=== PATIENT | female | born 1975 | race Caucasian/White ===

== ENCOUNTER → 2016-03-24 | Outpatient (CLI) | payer MEDICAID ==
--- NOTE | 2016-03-24 18:01 | US ---
Dear Dr. Ge, Thank you for sending your patient, Kathryn Falk, to us for a follow-up US for a TTTS and TAPS check. As you know, the patient is a 40 y.o. G6, P5005 at 27 weeks and 1 days with an EDC of 06/22/16 based on LMP and 8 week US. This is a monochorionic-monoamniotic twin . Her is complicated by AMA >40, grand multiparity, and history of a LEEP. Genetic Screening: NIPT reassuring The patient denies any uterine contractions, vaginal bleeding, or loss of fluid. She reports excellen t movement. Today, she is without complaints. US FINDINGS: Number of fetuses: 2 Placental location: Anterior, no previa Cervix: 3.5 cm, transabdominally Twin A: - Position: Maternal right - Presentation: Breech - FHR: 143 - MVP: 3.9 cm - Stomach: Present - Bladder: Present - MCA Doppler PSV: 51.8 cm/s. This is equivalent to 1.45 MoMs, and is below the designated cutoff of 1.5 MoMs. Twin B: - Position: Maternal left - Presentation: Transverse, head maternal left - FHR: 147 - MVP: 5.4 cm - Stomach: Present - Bladder: Present - MCA Doppler PSV: 50.2 cm/s. This is equivalent to 1.41 MoMs, and is below the designated cutoff of 1.5 MoMs. IMPRESSION: Monochorionic-Diamniotic Twin : Today, there is no evidence of TTTS or TAPS. - Growth US and TTTS/TAPS check in 2 weeks - Start twice weekly NSTs at 32 weeks - Delivery by 37+0 weeks Thank you again for sending this patient to see us today. Approximately 15 minutes were spent with th is patient today with 12 minutes of this time spent in direct face to face counseling regarding today 's US findings and our recommendations. Please contact me with any questions at . Edwige Hussein MD Maternal- Medicine
--- NOTE | 2016-03-25 08:44 | US ---
OB Sonogram , limited with duplex Doppler analysis History: ROSA June 22, 2016, 27 weeks 1 day, mono chorionic diamniotic twins, advanced maternal age, twin twin transfusion syndrome, Comparison: March 10, 2016 Findings: The cervix is closed measuring 3.5 scanned transabdominally. There is no placenta previa. T he placenta is anterior and not mature. A thin membrane is present between the 2 twins. Twin A: This is the presenting twin and is on the maternal right in breech presentation. heart is 4 chambered. Heart rate = 143 beats per minute. Maximum amniotic fluid pocket = 3.9 cm. Fluid is i dentified in the stomach and urinary bladder. The renal region looks normal. There is no ascites. There is no pleural or pericardial effusion Duplex Doppler analysis: Middle cerebral artery peak systolic velocity = 51.8 cm/sec and is low. Twin B: The fetus is on the maternal left and in transverse lie with the head on the maternal l eft. The heart is 4 chambered. Heart rate = 147 beats per minute. Maximum amniotic fluid pocket = 5.4 cm.. Fluid is identified in the stomach and urinary bladder. The renal regio n looks normal. There is no ascites. There is no pleural or pericardial effusion. Duplex Doppler analysis: Middle cerebral artery peak systolic velocity = 50.2 cm/sec and is low. Impression: There is no evidence for twin twin transfusion syndrome or TAPS. This report should be read in conjunction with the consultation by Dr. Edwige Hussein.
== END ==
LOC: FIMAGING 09:43
PROVIDERS: ATTEND Obstetrics & Gynecology
DX: O30.013 Twin pregnancy, monochorionic/monoamniotic, third trimester (principal); O09.523 Supervision of elderly multigravida, third trimester; O09.43 Supervision of pregnancy with grand multiparity, third trimester; Z3A.27 27 weeks gestation of pregnancy

== ENCOUNTER → 2016-04-07 | Outpatient (CLI) | payer MEDICAID ==
--- NOTE | 2016-04-07 18:43 | US ---
Dear Dr. Ge, Thank you for sending your patient, Kathryn Falk, to us for a follow-up US to assess interval grow th and for a TTTS and TAPS assessment. As you know, the patient is a 40 y.o. G6, P5005 at 29 weeks an d 1 days with an EDC of 06/22/16 based on LMP and 8 week US. This is a monochorionic-diamniotic twin p regnancy complicated by AMA>40 and grand multiparity. Genetic Screening: NIPT reassuring The patient denies any uterine contractions, vaginal bleeding, or loss of fluid. She reports excellen t movement. Today, she is without complaints. US FINDINGS: Number of fetuses: 2 Placental location: Anterior, no previa Cervix: 3.7 cm, transabdominally Twin A presentation: Cephalic, maternal right MVP: 7.5 cm Measurements: Biparietal diameter: 73 mm, 29 weeks 3 days Head circumference: 276 mm, 30 weeks 2 days Abdominal circumference: 262 mm, 30 weeks 3 days Femur length: 58 mm, 30 weeks 2 days Humerus length: 51 mm, 30 weeks 0 days Transcerebellar diameter: 34 mm, 28 weeks 6 days Cerebral Lateral Ventricle: Suboptimal Cisterna Magna: 5 mm Heart Rate: 150 bpm Average ultrasound age: 30 weeks 1 days Estimated weight: 1530 g weight percentile: 76 % Anatomy: anatomy was previously assessed. Today the following structures were visualized and appeared n ormal: posterior fossa, 4CH view, stomach, kidneys, and bladder. MCA Doppler: PSV: 44.4 cm/s, 1.13 MoM, Normal Twin B presentation: Cephalic, maternal left MVP: 6.8 cm Measurements: Biparietal diameter: 73 mm, 29 weeks 3 days Head circumference: 271 mm, 29 weeks 4 days Abdominal circumference: 252 mm, 29 weeks 3 days Femur length: 56 mm, 29 weeks 4 days Humerus length: 50 mm, 29 weeks 2 days Transcerebellar diameter: 36 mm, 30 weeks 1 days Cerebral Lateral Ventricle: Suboptimal Cisterna Magna: 7.6 mm Heart Rate: 140 bpm Average ultrasound age: 29 weeks 4 days Estimated weight: 1395 g weight percentile: 48 % Anatomy: anatomy was previously assessed. Today the following structures were visualized and appeared n ormal: posterior fossa, 4CH view, stomach, and bladder. MCA Doppler: PSV: 46.2 cm/s, 1.18 MoM, Normal Twin Size Difference: 9% difference with Twin A larger than Twin B, concordant growth IMPRESSION: Today, both twins measure at an appropriate weight and percentile for gestational age. Their growth c ontinues to be concordant. There is no evidence of TTTS with normal amniotic fluid around both twins and both twins with normal bladders and stomachs. There is no evidence of TAPS as both twins have nor mal MCA PSV. - TTTS and TAPS check in 2 weeks - Growth US in 4 weeks - Start twice weekly NSTs at 32 weeks - Delivery by 37+0 weeks or sooner for changes in maternal or status Thank you again for sending this patient to see us today. Approximately 15 minutes were spent with th is patient today with 12 minutes of this time spent in direct face to face counseling regarding today 's US findings and our recommendations. Please contact me with any questions at . Edwige Hussein MD Maternal- Medicine
--- NOTE | 2016-04-08 18:45 | US ---
Ultrasound OB Follow-Up Indication: Monochorionic diamniotic twins. Follow-up. The estimated gestational age by LMP is 29 w eeks and 1 days yielding an EDC of June 22, 2016. Comparison: March 24, 2016 Findings: Gestation: Monochorionic diamniotic twins. Cervix: Closed measuring 3.7 cm. No previa. Anterior placenta. Twin A: Presentation: Cephalic, maternal right Maximal vertical pocket: 7.5 cm heart rate: 150 bpm. Biometry: Biparietal diameter: 73.06 mm 29 weeks, 3 days Head circumference: 276.18 mm 30 weeks, 2 days Abdominal circumference: 261.86 mm 30 weeks, 3 days Femur length: 57.79 mm 30 weeks, 2 days Humerus length: 51.11 mm 30 weeks, 0 days HC/AC: 1.05 (0.99 - 1.21) FL/BPD: 79% FL/AC: 22% Average ultrasound age: 30 weeks, 1 days EDC based on today's average ultrasound age: June 15, 2016 Estimated weight is 1530 gms +/- 223 gms. The estimated weight is at the 76 percentile ba sed on previous dating. Anatomy previously evaluated. Today's limited anatomy includes 4 chamber heart, stomach, kidney s and bladder. Twin B: Presentation: Cephalic, maternal left Maximal vertical pocket: 6.8 cm heart rate: 140 bpm. Biometry: Biparietal diameter: 73.03 mm 29 weeks, 3 days Head circumference: 270.92 mm 29 weeks, 4 days Abdominal circumference: 52.21 mm 29 weeks, 3 days Femur length: 56.07 mm 29 weeks, 4 days Humerus length: 49.97 mm 29 weeks, 2 days Transcerebellar diameter: 36.44 mm 30 weeks, 1 days HC/AC: 1.07 (0.99 - 1.21) FL/BPD: 77% FL/AC: 22% Average ultrasound age: 29 weeks, 4 days EDC based on today's average ultrasound age: June 19, 2016 Estimated weight is 1395 gms +/- 204 gms. The estimated weight is at the 48 percentile ba sed on previous dating. The difference in estimated weight is 9%. Concordant growth. Anatomy previously evaluated. Today's limited anatomy demonstrates four-chamber view of heart, stomach and bladder. Impression: 1. Living monochorionic diamniotic twins. 2. Concordant growth of twins. 3. Size concordant with dates. 4. Please see Dr. Edwige Hussein's consult and recommendations.
== END ==
LOC: FIMAGING 09:09
PROVIDERS: ATTEND Obstetrics & Gynecology
DX: O30.033 Twin pregnancy, monochorionic/diamniotic, third trimester (principal); O09.523 Supervision of elderly multigravida, third trimester; Z3A.29 29 weeks gestation of pregnancy

== ENCOUNTER → 2016-04-20 | Outpatient (CLI) | payer MEDICAID ==
--- NOTE | 2016-04-20 13:44 | US ---
April 20, [address] Prabhu Murillo, Thank you for allowing us the opportunity to see your patient Kathryn Falk for TTTS check. As you know, Kathryn is a 40 year-old, 6, para 5005 with a monochorionic diamniotic twin dating 31 weeks 0 days. Her ROSA is 06/22/16 by LMP and 8 week ultrasound. Today, she is being seen for her s erial surveillance of Twin to Twin Transfusion Syndrome. ULTRASOUND Number of fetuses: 2 Placenta: Anterior; monochorionic Amnion: Diamniotic Cervical Length: Suboptimally viewed Twin A Position: Maternal right; cephalic Heart Rate: 144 bpm Maximum Vertical Pocket: 6.0 cm Stomach: Present Bladder: Present Middle Cerebral Artery Doppler Peak Systolic Velocity: 54 cm/s. This is at 1.27 MoM for this gestat ional age. The average PSV for this gestational age is 42 cm/s. Twin B Position: Maternal left; cephalic Heart Rate: 155 bpm Maximum Vertical Pocket: 5.6 cm Stomach: Present Bladder: Present Middle Cerebral Artery Doppler Peak Systolic Velocity: 53 cm/s. This is at 1.24 MoM for this gestat ional age. The average PSV for this gestational age is 42 cm/s. IMPRESSION: 1. Monochorionic Diamniotic twin at 31 weeks 0 days; ROSA of 06/22/16. 2. No evidence of Twin to Twin Transfusion Syndrome (TTTS) 3. No evidence of Twin Anemia Polycythemia Syndrome (TAPS) 4. Normal amniotic fluid volume for both babies. RECOMMENDATIONS I had the opportunity to review today's ultrasound with your patient. I reassured her that today's u ltrasound did not reveal any worrisome findings concerning for TTTS or TAPS. Serial surveillance is recommended and she has been scheduled to return in 2 week(s) for growth and Dopplers. Thank you for allowing me the opportunity to evaluate your patient. Should you have any questions or concerns, please do not hesitate to contact me on my cell phone at [phone]. Sincerely, Analy Kam MD [employer] [facility] Maternal Medicine Department of Obstetrics and Gynecology [facility]
--- NOTE | 2016-04-20 18:51 | US ---
Ultrasound OB Follow-Up Indication: Monochorionic diamniotic twins. The estimated gestational age by LMP is 31 weeks and 0 days yielding an EDC of 06/22/2016. Comparison: April 07, 2016 Findings: Gestation: Monochorionic diamniotic twins. Cervix: Suboptimal. Twin A: Presentation: Cephalic, maternal right Placental location: Anterior, monochorionic. Maximal vertical pocket: 6 cm heart rate: 144 bpm. Anatomy previously evaluated. Twin B: Presentation: Cephalic, maternal left Maximal vertical pocket: 5.6 cm heart rate: 155 bpm. Anatomy previously evaluated. Impression: 1. Living monochorionic diamniotic twins. 2. Normal amniotic fluid volume. 3. Please see Dr. Analy Kam's consult and recommendations.
== END ==
LOC: FIMAGING 12:26
PROVIDERS: ATTEND Obstetrics & Gynecology
DX: O30.033 Twin pregnancy, monochorionic/diamniotic, third trimester (principal); O09.523 Supervision of elderly multigravida, third trimester; Z3A.31 31 weeks gestation of pregnancy

== ENCOUNTER → 2016-05-11 | Outpatient (CLI) | payer MEDICAID | LOC: FIMAGING 13:25 | PROVIDERS: ATTEND Obstetrics & Gynecology | DX: O09.523 Supervision of elderly multigravida, third trimester (principal); O30.033 Twin pregnancy, monochorionic/diamniotic, third trimester; Z3A.34 34 weeks gestation of pregnancy ==

== ENCOUNTER 2016-06-01 05:40 | Inpatient (IN) | payer MEDICAID ==
[2016-06-01] MEDS ORDERED: LR 500 ML IV ONE (06:09)
[2016-06-01] MEDS ORDERED: CITRIC ACID/SODIUM CITRATE 30 ML UDCUP PO ONE (06:09)
[2016-06-01] MEDS ORDERED: CLINDAMYCIN 900 MG/DEXTROSE 50 ML IV ONE (06:09)
[2016-06-01] MEDS ORDERED: LR 1,000 ML IV SCH (06:30)
[2016-06-01 06:37] LABS: % IMMATURE GRANULYOCYTES 1.1 % (0.0-1.1); ABSOLUTE IMMATURE GRANULOCYTES 0.13 10^3/uL (0.00-0.10); ADD DIFF? NO; ADD MORPH? NO; ADD SCAN? NO; ATYPICAL LYMPHOCYTE FLAG 10 (0-99); FRAGMENT RBC FLAG 0 (0-99); HEMOGLOBIN 12.9 g/dL (12.6-16.3); LEFT SHIFT FLG 10 (0-99); LIPEMIA HEMOLYSIS FLAG 90 (0-99); MEAN CELL HEMOGLOBIN 31.2 pg (27.9-34.1); MEAN CELL HEMOGLOBIN CONCENTR. 33.9 g/dL (32.4-36.7); MEAN PLATELET VOLUME 10.1 fL (8.7-11.7); PLATELET CLUMPS FLAG 20 (0-99); PLATELET COUNT 284 10^3/uL (150-400); RED BLOOD CELL COUNT 4.13 10^6/uL (4.18-5.33); RED CELL DISTRIBUTION WIDTH 12.6 % (11.5-15.2)
[2016-06-01] MEDS ORDERED: GENTAMICIN SULFATE 350 MG in D5W 100 ML IV ONE (07:00)
[2016-06-01] MEDS ORDERED: fentaNYL 100 MCG/2 ML INJ ONE (07:29)
[2016-06-01] MEDS ORDERED: morphINE PF 5 MG/10 ML INJ ONE (07:29)
[2016-06-01] MEDS ORDERED: OXYTOCIN 100 UNITS/10 ML VIAL ONE (07:30)
[2016-06-01] MEDS ORDERED: PHENYLEPHRINE HCL 100 MCG/ML SYR ONE (07:30)
[2016-06-01] MEDS ORDERED: LIDOCAINE 1% 30 ML SDV ONE (07:31)
[2016-06-01] MEDS ORDERED: MISOPROSTOL 200 MCG TAB ONE (07:35)
[2016-06-01] MEDS ORDERED: METHYLERGONOVINE MAL 0.2 MG/ML INJ ONE (07:36)
[2016-06-01] MEDS ORDERED: HEMABATE 250 MCG/1 ML AMP IM ONE (07:36)
[2016-06-01] MEDS ORDERED: SIMETHICONE 80 MG TAB CHEW PO PRN (07:39)
[2016-06-01] MEDS ORDERED: ONDANSETRON 4 MG/2 ML VIAL ONE (07:58)
--- NOTE | 2016-06-01 08:43 | OBPROC ---
- Delivery Pre-op Diagnoses: Twins Post-op Diagnoses: Twins Procedure: Primary Surgeon: Sis Ge Territory Sales Manager: Ayse Sanchez Anesthesiologist: Osvaldo Simmons Hand Molder [employer] Caster/PRODUCTION TECHNICIAN: Tracy Marks Anesthesia: Spinal Complications: None Specimen(s)/Path: Fallopian Tube(s) IV Fluid (ml): 2,900 EBL: 900 - [place] Info Infant A Delivery Date: 06/01/16 Delivery Time: 08:10 Sex of Infant: Female Score (1 Min): 9 Score (5 Min): 9 B Delivery Date: 06/01/16 Delivery Time: 08:12 Sex of Infant: Female
[2016-06-01] MEDS ORDERED: SCOPOLAMINE HYDROBROMIDE 1.5 MG PATCH TD ONE (09:00)
--- NOTE | 2016-06-01 09:25 | GOP ---
[f rep st] OPERATIVE REPORT DATE OF OPERATION: 06/01/2016 SURGEON: Sis Murillo MD PREOPERATIVE DIAGNOSIS: Intrauterine at 37 weeks' gestation with dichorionic/monoamniotic twin gestation and fetus B in breech presentation, desired sterility. POSTOPERATIVE DIAGNOSIS: 1. Intrauterine at 37 weeks' gestation with dichorion/monoamnion twin gestation and fetus B in breech presentation. 2. Desired sterility. PROCEDURE PERFORMED: Primary low transverse and bilateral tubal ligation. FINDINGS: Normal uterus, fallopian tubes, and ovaries. Infant A was in vertex presentation, clear amniotic fluid, Apgars 9 and 9, weight 6 pounds, 6 ounces. Twin B was in footling breech presentation, Apgars 7 and 8, weight 2696 g, EBL was 900 mL. SPECIMENS: Bilateral tubal segments and placenta. INDICATIONS: The patient is a 40-year-old, female who conceived spontaneously with dichorionic/diamniotic twins, and fetus B was in breech presentation. Agreed to delivery. She also desired permanent sterilization. DESCRIPTION OF PROCEDURE: The patient was taken to the operating room where she was prepped and draped in normal sterile fashion in the dorsal supine position with leftward tilt. A surgical time-out was performed verifying the patient's name, date of , planned procedure, and site. The patient received clindamycin and gentamicin preoperatively for her IV antibiotic prophylaxis as she is allergic to penicillin. A Pfannenstiel skin incision was made with a scalpel and carried through to the underlying fascia. The fascia was incised in the midline and extended laterally with the Miranda scissors. The superior aspect of fascia was grasped with Jose Carlos clamps. The rectus muscles dissected off bluntly and with the Bovie cautery. The inferior aspect of the fascia was grasped with Jose Carlos clamps. The rectus muscles dissected off bluntly and with the Bovie cautery. The peritoneum was identified and entered bluntly. The peritoneum was divided. The vesicouterine peritoneum was incised with the Metzenbaum scissors, and a bladder flap was created digitally. The bladder blade was replaced. The uterus was incised with a scalpel, and the uterine incision extended laterally. A was vertex presentation, and the cord was clamped and cut. Infant B amniotic sac was broken. The was in footling-breech presentation and was delivered. The cord was clamped and cut, and the was handed to the nurse practitioner. Cord blood was obtained. The placentas were delivered manually. The uterus was exteriorized and cleared of all clots and debris. The uterine incision was reapproximated with 0 Monocryl in a running, locked fashion in 2 layers. The right fallopian tube was grasped with a [place] clamp. The mesosalpinx was incised. The tube was ligated and transected. The same procedure was performed on the patient's left. The uterus was returned to the abdomen. The gutters were cleared of all clots and debris. The uterine incision was reinspected and noted to be hemostatic. The subfascial space was reinspected and noted to be hemostatic. The fascia was reapproximated with 0 Vicryl in a running fashion. The subcutaneous tissue was irrigated and closed with 3-0 Vicryl, and the skin was closed with 4-0 Monocryl. All counts were correct x2. COMPLICATIONS: None. OUTCOME: Stable to recovery room. /[id number]/MODL MTDD
[2016-06-01] MEDS ORDERED: NALOXONE HCL 0.4 MG/ML INJ IVP PRN (10:44)
[2016-06-01] MEDS ORDERED: ONDANSETRON 4 MG/2 ML VIAL IVP PRN (10:44)
[2016-06-01] MEDS ORDERED: PHENYLEPHRINE HCL 100 MCG/ML SYR IVP PRN (10:44)
--- NOTE | 2016-06-01 10:49 | PREANESOB ---
Obstetric Pre-Anesthesia Info - General Info Proposed Procedure: C Section for twins. : 6 Para: 5 WBD: 37 - Info Status: Full Term Monitors: External FHR Baseline (bpm): 135 FHR Pattern: Reassuring - Labor Status Section History: Primary Labor Epidural: No Anesthesia ROS: Labor epidural x 5. Possible PDPH? Allergies/Adverse Reactions: Allergy/AdvReac Type Severity Reaction Status Date / Time Penicillins Allergy Verified 06/01/16 06:09 Visit Medications: Generic Name Dose Route Start Last Admin Trade Name Freq PRN Reason Stop Dose Admin Hydrocodone Bitart/Acetaminophen 1 - 2 tab 06/01/16 07:39 Ethel 5/325 PO 06/11/16 07:38 Q4HRS PRN Pain, Moderate Docusate Sodium 100 mg 06/01/16 07:39 Colace PO 11/28/16 07:38 BID PRN Constipation Lactated Ringer's 1,000 mls @ 125 mls/hr 06/01/16 06:30 06/01/16 06:35 Lr IV 11/28/16 06:29 1,000 mls CONT SAKSHI Administration Ibuprofen 600 mg 06/01/16 07:39 Motrin PO 11/28/16 07:38 Q6HRS PRN Inflammation Ketorolac Tromethamine 30 mg 06/01/16 12:00 Toradol IVP 06/02/16 06:01 Q6HRS SAKSHI Simethicone 80 mg 06/01/16 07:39 Mylicon PO 11/28/16 07:38 .TIDMEALS AND HS PRN Gas Discontinued Medications Generic Name Dose Route Start Last Admin Trade Name Freq PRN Reason Stop Dose Admin Carboprost Tromethamine Confirm 06/01/16 07:36 Hemabate Administered 06/01/16 07:37 Dose 250 mcg IM .STK-MED ONE Citric Acid/Sodium Citrate 30 ml 06/01/16 06:09 06/01/16 09:24 Bicitra PO 06/01/16 06:10 Not Given ONCALL ONE Fentanyl Confirm 06/01/16 07:29 Sublimaze Administered 06/01/16 07:30 Dose 100 mcg .ROUTE .STK-MED ONE Clindamycin Phosphate/Dextrose 50 mls @ 100 mls/hr 06/01/16 06:09 06/01/16 07 :11 Cleocin 900 Mg (Premix) IV 06/01/16 06:38 50 mls ONCALL ONE Administration Protocol Lactated Ringer's 500 mls @ 0 mls/hr 06/01/16 06:09 06/01/16 09:24 Lr IV 06/01/16 06:10 500 mls ONCE ONE Administration As Directed Gentamicin Sulfate 350 mg/ 108.75 mls @ 108.75 mls/hr 06/01/16 07:00 07:28 Dextrose IV 06/01/16 07:59 108.75 mls ONCALL ONE Administration Lidocaine HCl Confirm 06/01/16 07:31 Lidocaine Hcl 1% Administered 06/01/16 07:32 Dose 30 ml .ROUTE .STK-MED ONE Methylergonovine Maleate Confirm 06/01/16 07:36 Methergine Administered 06/01/16 07:37 Dose 0.2 mg .ROUTE .STK-MED ONE Misoprostol Confirm 06/01/16 07:35 Cytotec Administered 06/01/16 07:36 Dose 800 mcg .ROUTE .STK-MED ONE Morphine Sulfate Confirm 06/01/16 07:29 Morphine Pf 5 Mg/10 Ml Administered 06/01/16 07:30 Dose 5 mg .ROUTE .STK-MED ONE Ondansetron HCl Confirm 06/01/16 07:58 Zofran Administered 06/01/16 07:59 Dose 8 mg .ROUTE .STK-MED ONE Oxytocin Confirm 06/01/16 07:30 Pitocin Administered 06/01/16 07:31 Dose 100 units .ROUTE .STK-MED ONE Phenylephrine HCl Confirm 06/01/16 07:30 Josias-Synephrine Administered 06/01/16 07:31 Dose 1,000 mcg .ROUTE .STK-MED ONE Scopolamine HBr Confirm 06/01/16 09:00 Transderm-Scop Administered 06/01/16 09:01 Dose 1.5 mg TD .STK-MED ONE - Anesthesia History Response to Local Anesthetics: Normal Anesthesia & Operative History: Prob w/Prior Anesthesia Family Anesthesia History: Negative - Social History Substance Use/Abuse: Denies - Focused Exam Latest Vital Signs (Nursing): Temp Pulse Resp BP Pulse Ox 36.4 C 74 18 98 06/01/16 09:25 06/01/16 09:25 06/01/16 09:25 06/01/16 09:25 Blood Pressure: 121/81 Heart Rate: 84 Respiratory Rate: 18 Height/Weight (Nursing): Height 165.1 cm Weight 91.626 kg Physical Exam: Within normal limits. ASA Status: II Labs: 06/01/16 06:20 Patient ABO/Rh B POSITIVE 06/01/16 06:20 - Plan Anesthetic Plan: SAB Consent Signed and on Chart: Yes Patient/Guardian Understands and Agrees to Plan: Yes
[2016-06-01] MEDS: KETOROLAC 30 MG/1 ML SDV IVP SCH ×2 (10:51→17:13)
--- NOTE | 2016-06-01 10:52 | POSTANESTH ---
Post Anesthetic Evaluation Cardiovascular Status: Normal, Stable, Similar to Pre-Op Cond Respiratory Status: Normal, Stable, Similar to Pre-op Cond. Level of Consciousness/Mental Status: Can Participate in Eval, Alert and Oriented Pain Control: Adequate, Prn Tx Ordered Nausea/Vomiting Control: Adequate, Prn Tx Ordered Complications Possibly Related to Anesthesia: None Noted (Tolerated spinal well , BP treated, comfortable for surgery, to PACU, no pain or nausea.)
[2016-06-01] MEDS: DOCUSATE SODIUM 100 MG CAP PO PRN (20:32)
[2016-06-02] MEDS: KETOROLAC 30 MG/1 ML SDV IVP SCH ×2 (00:08→06:28)
[2016-06-02] MEDS: HYDROCODONE/APAP 5/325 TAB PO PRN ×6 (00:42→16:49)
[2016-06-02] MEDS ORDERED: POLYETHYLENE GLYCOL 3350 17 GM PKT PO PRN (07:42)
[2016-06-02] MEDS ORDERED: MAGNESIUM HYDROXIDE 30 ML UDCUP PO PRN (07:42)
[2016-06-02] MEDS ORDERED: LACTULOSE 20 GM/30 ML UDCUP PO PRN (07:42)
[2016-06-02] MEDS ORDERED: BISACODYL 10 MG SUPP PR PRN (07:42)
--- NOTE | 2016-06-02 07:45 | SOAPPROG ---
SOAP Progress Note Assessment/Plan: Assessment: 40 y.o. s/p primary C/S for breech presentation of second twin. POD #1. Recovering well. . Incision CDI. Plan: Routine / post-op orders. D/C Hall and IVF. Remove abdominal bandage. Encourage ambulation. consult PRN. 06/02/16 07:42 Subjective: Reports feeling well with good pain control and minimal vaginal bleeding. Incision CDI. Hall D/C'd and patient has been out of bed and ambulating well. Voiding without difficulty. Eating and drinking without nausea or vomiting. Appropriate mood with good support system. . Objective: Vital Signs Temp Pulse Resp BP Pulse Ox 36.6 C 80 18 98/62 L 95 06/02/16 04:00 06/02/16 06:00 06/02/16 00:10 06/02/16 04:00 06/02/16 06:00 Laboratory Results 06/01/16 06:20 06/01/16 06/02/16 06/03/16 05:59 05:59 05:59 Intake Total 7100 Output Total 5025 Balance 2075 - Time Spent With Patient Time Spent With Patient: 20 minutes - Pending Discharge Pending Discharge Within 24 Hours: No Pending Discharge Within 48 Hours: Yes Pending Discharge Date: 06/04/16 Pending Discharge Time: 11:00 Physical Exam - Physical Exam General Appearance: WD/WN, alert, no apparent distress EENT: normal ENT inspection Neck: non-tender, full range of motion, normal inspection Respiratory: lungs clear, normal breath sounds Cardiac/Chest: regular rate, rhythm Abdomen: non-tender, soft Pelvic Exam: normal external exam Rectal: deferred Back: Normal inspection Skin: normal color, warm/dry Lymphatic: no adenopathy Extremities: normal range of motion, non-tender, normal inspection Neuro/Psych: alert, normal mood/affect, oriented x 3 ICD10 Worksheet Patient Problems: Problems Problem Status Onset Breech presentation Acute
[2016-06-02] MEDS: SENNOSIDES 1 TAB PO SCH ×2 (09:01→20:47)
[2016-06-02] MEDS: DOCUSATE SODIUM 100 MG CAP PO PRN ×2 (09:01→20:47)
[2016-06-02 09:19] LABS: % IMMATURE GRANULYOCYTES 0.9 % (0.0-1.1); ABSOLUTE IMMATURE GRANULOCYTES 0.16 10^3/uL (0.00-0.10); ADD DIFF? NO; ADD MORPH? NO; ADD SCAN? NO; ATYPICAL LYMPHOCYTE FLAG 0 (0-99); FRAGMENT RBC FLAG 0 (0-99); HEMOGLOBIN 11.2 g/dL (12.6-16.3); LEFT SHIFT FLG 0 (0-99); LIPEMIA HEMOLYSIS FLAG 90 (0-99); MEAN CELL HEMOGLOBIN CONCENTR. 33.9 g/dL (32.4-36.7); MEAN CELL VOLUME 91.4 fL (81.5-99.8); MEAN PLATELET VOLUME 9.9 fL (8.7-11.7); PLATELET CLUMPS FLAG 10 (0-99); PLATELET COUNT 268 10^3/uL (150-400); RED BLOOD CELL COUNT 3.61 10^6/uL (4.18-5.33); RED CELL DISTRIBUTION WIDTH 12.8 % (11.5-15.2)
[2016-06-02] MEDS: IBUPROFEN 600 MG TAB PO PRN ×2 (12:50→18:39)
[2016-06-02] MEDS: OXYCODONE/APAP 5/325 TAB PO PRN (20:47)
[2016-06-03] MEDS: IBUPROFEN 600 MG TAB PO PRN ×4 (01:02→19:35)
[2016-06-03] MEDS: OXYCODONE/APAP 5/325 TAB PO PRN ×3 (01:02→07:19)
[2016-06-03] MEDS: SENNOSIDES 1 TAB PO SCH ×2 (07:25→20:48)
[2016-06-03] MEDS: DOCUSATE SODIUM 100 MG CAP PO PRN (07:25)
[2016-06-03] MEDS: oxyCODONE IR 5 MG TAB PO PRN ×4 (11:28→20:47)
--- NOTE | 2016-06-03 13:02 | SOAPPROG ---
SOAP Progress Note Assessment/Plan: Assessment: POD#1 s/p pLTCS for twins Recovering well Rh pos Plan: Trial oxycodone and motrin for pain control so no issue with tylenol limits Routine care She desires home tomorrow on POD#3 06/03/16 12:59 06/03/16 13:02 Subjective: Did get some sleep. However she feels like she has been "hit by a truck." After taking percocet she still had 6/10 pain at incision area. States she is only going to take 1 every 4 hours today due to tylenol limits but doesn't feel this will be enough. Appropriate lochia. Milk starting to come in. Objective: Vital Signs Temp Pulse Resp BP Pulse Ox 36.6 C 81 16 106/70 94 06/03/16 08:07 06/03/16 08:07 06/03/16 08:07 06/03/16 08:07 06/03/16 08:07 Laboratory Results 06/02/16 09:00 06/02/16 06/03/16 06/04/16 05:59 05:59 05:59 Intake Total 7100 Output Total 5025 1500 Balance 2075 -1500 Gen: alert, awake, NAD Resp: unlabored CV: reg rate Breasts: soft Abd: soft, appropriate TTP, appropriately distended Incision: c/d/i with steri strips Ext: no edema ICD10 Worksheet Patient Problems: Problems Problem Status Onset Breech presentation Acute
[2016-06-04] MEDS: oxyCODONE IR 5 MG TAB PO PRN ×3 (00:50→06:53)
[2016-06-04] MEDS: IBUPROFEN 600 MG TAB PO PRN ×3 (01:21→13:46)
[2016-06-04] MEDS: SENNOSIDES 1 TAB PO SCH (07:37)
[2016-06-04 08:05] VITALS: BP 98/64; PULSE 73; RESP 16; TEMP 97.9; O2SAT 96
--- NOTE | 2016-06-04 08:51 | OBGCSDC ---
General Delivery Information - General Info : 6 Para: 6 Delivery Date: 06/01/16 Delivery Time: 08:10 Delivery Physician/CNM: Sis Ge Environmental Engineering Technician: Ayse Sanchez Admission Date: 06/01/16 Labs: Patient ABO/Rh B POSITIVE 06/01/16 06:20 Hct 33.0 % (38.0-47.0) L 06/02/16 09:00 - Info A Sex of : Female Score (1 Min): 8 Score (5 Min): 9 Infant B Sex of : Female Score (1 Min): 8 Score (5 Min): 9 - Delivery IUP (Weeks): 39 Number of Prior Sections: 0 Indications for Prior Section: Other (Specify) Indications for Current Section: Breech Procedures: LTCS Intra-op Complications: None EBL: 900 Anesthesia: Spinal Discharge Information - Discharge Information Discharge Medications: Ibuprofen, Percocet, Vitamins Condition: Good Instruction/Follow Up: Two Weeks Discharge Physician/CNM: Ayse Sanchez Discharge Date: 06/04/16 Dictated: No
[2016-06-04] MEDS: OXYCODONE/APAP 5/325 TAB PO PRN ×2 (10:37→14:56)
== END 2016-06-04 16:30 | disposition home or self-care (01) | DRG 766 ==
LOC: FLD 05:40 → FOB 12:13
PROVIDERS: ADMIT Midwife; ATTEND Midwife
PROC: 0UL70ZZ Occlusion of Bilateral Fallopian Tubes, Open Approach (ICD-10-PCS; principal; 2016-06-01)
PROC: 10D00Z1 Extraction of Products of Conception, Low, Open Approach (ICD-10-PCS; principal; 2016-06-01)
DX: O32.1XX2 Maternal care for breech presentation, fetus 2 (principal); Z37.2 Twins, both liveborn; Z3A.37 37 weeks gestation of pregnancy
CPT/HCPCS: J1885; J2210; J2274; J2370; J2405; J2590; J3010

== ENCOUNTER → 2016-06-16 | Outpatient (CLI) | payer MEDICAID | LOC: FLACT 09:50 | PROVIDERS: ATTEND Pediatrics | DX: O92.5 Suppressed lactation (principal) | CPT/HCPCS: G0463 ==

== ENCOUNTER → 2016-12-15 | Outpatient (CLI) | payer MEDICAID | LOC: BMCIMAGING 13:34 | PROVIDERS: ATTEND Obstetrics & Gynecology | DX: N92.0 Excessive and frequent menstruation with regular cycle (principal); D25.0 Submucous leiomyoma of uterus ==

== ENCOUNTER → 2017-05-24 | Outpatient (CLI) | payer MEDICAID | LOC: BMCIMAGING 14:06 | PROVIDERS: ATTEND Internal Medicine | DX: M18.12 Unilateral primary osteoarthritis of first carpometacarpal joint, left hand (principal) ==